=== PATIENT | male | born 1945 | race Caucasian/White ===

== ENCOUNTER 2019-05-28 17:02 | Inpatient (IN) | payer OTHER ==
[~2019-05-28] VITALS: Ht 177.8 cm; Wt 100.1 kg
[2019-05-28] MEDS ORDERED: SODIUM CHLORIDE 0.9% 1,000 ML IVB ONE (17:10)
[2019-05-28] MEDS ORDERED: ONDANSETRON HCL 4 MG/2 ML VIAL IV ONE (17:15)
[2019-05-28] MEDS ORDERED: KETOROLAC TROMETH 30 MG/ML 1ML VIAL IV ONE (17:15)
[2019-05-28] MEDS ORDERED: MORPHINE SULFATE 4 MG/ML SYR/VIAL IV ONE (17:15)
[2019-05-28 18:01] LABS: Basophils # (auto) 0 uL; Basophils % (auto) 0.2 % (0.0-2.0); Eosinophils # (auto) 0 uL; Eosinophils % (auto) 0.1 % (0.0-7.0); Hemoglobin 15.8 g/dL (13.5-17.5); Lymphocytes # (auto) 0.7 uL; Mean Corpuscular Hemoglobin 29.7 pg (28.0-32.0); Mean Corpuscular Hgb Conc. 33.5 g/dL (32.0-36.0); Mean Corpuscular Volume 88.7 fL (80.0-100.0); Monocytes # (auto) 0.8 uL; Monocytes % (auto) 4.5 % (0.0-12.0); Neutrophils # (auto) 15.5 uL; Neutrophils % (auto) 91.2 % (37.0-80.0); Platelet Count (auto) 207 10^3/uL (140-450); Red Cell Distribution Width 14.5 % (11.8-14.3)
[2019-05-28 18:17] LABS: Albumin 2.9 g/dL (3.4-5.0); Calcium 8.7 mg/dL (8.5-10.1); Potassium 4.2 mmol/L (3.5-5.1)
[2019-05-28 18:22] LABS: BUN/Creatinine Ratio 16.5; Bilirubin, Total 0.8 mg/dL (0.2-1.0); Total Protein 7.2 g/dL (6.4-8.2)
[2019-05-28] MEDS ORDERED: CITA-77 PO (18:52)
[2019-05-28] MEDS ORDERED: ALLO300T2 PO (18:52)
[2019-05-28] MEDS ORDERED: FENO1TAB41 PO (18:52)
[2019-05-28] MEDS ORDERED: GABA100C9 PO (18:52)
[2019-05-28] MEDS ORDERED: SIMV-8 PO (18:52)
[2019-05-28] MEDS ORDERED: MULT1TAB65 PO (18:52)
[2019-05-28] MEDS ORDERED: PANT1INJ3 PO (18:52)
[2019-05-28] MEDS ORDERED: OMEG100078 PO (18:52)
[2019-05-28] MEDS ORDERED: DOXA4TAB5 PO (18:52)
[2019-05-28] MEDS ORDERED: cefTRIAXone 1GM/50ML D5W 50 ML IV ONE (19:15)
[2019-05-28 19:34] LABS: Urine Bacteria NONE SEEN /hpf (None Seen); Urine Blood 2+ /uL (Negative); Urine Specific Gravity 1.014 (1.001-1.035); Urine WBC 18 /hpf (0 - 3)
[2019-05-28] MEDS ORDERED: NITROGLYCERIN 0.4 MG SL TAB SL PRN (21:15)
[2019-05-28] MEDS ORDERED: MORPHINE SULF INJ 2 MG/ML SYRINGE 1ML IV PRN ×2 (21:15)
[2019-05-28] MEDS ORDERED: ONDANSETRON HCL 4 MG/2 ML VIAL IV PRN (21:15)
[2019-05-28] MEDS ORDERED: ACETAMINOPHEN 500 MG TAB PO PRN (21:15)
[2019-05-28] MEDS ORDERED: DEXTROSE (50%) 50ML SYRG IV PRN (21:30)
[2019-05-28] MEDS: SODIUM CHLORIDE 0.9% 1,000 ML IV SCH (21:37)
[2019-05-28 21:42] LABS: Basophils # (auto) 0.1 uL; Basophils % (auto) 0.4 % (0.0-2.0); Eosinophils # (auto) 0 uL; Eosinophils % (auto) 0.1 % (0.0-7.0); Hematocrit 41.2 % (41.0-53.0); Hemoglobin 14.1 g/dL (13.5-17.5); Lymphocytes # (auto) 1.1 uL; Lymphocytes % (auto) 7.4 % (10.0-50.0); Mean Corpuscular Hgb Conc. 34.2 g/dL (32.0-36.0); Mean Corpuscular Volume 87.6 fL (80.0-100.0); Monocytes # (auto) 0.9 uL; Monocytes % (auto) 6.3 % (0.0-12.0); Neutrophils # (auto) 12.4 uL; Neutrophils % (auto) 85.8 % (37.0-80.0); Platelet Count (auto) 200 10^3/uL (140-450); Red Blood Cells 4.71 10^6/uL (4.5-5.90); Red Cell Distribution Width 14.4 % (11.8-14.3); White Blood Cell 14.4 10^3/uL (4.4-10.8)
[2019-05-28] MEDS: ACCU-CHEK COMFORT CURVE STRIP VI SCH (22:00)
[2019-05-28 22:04] LABS: BUN/Creatinine Ratio 17.1; Calcium 8.2 mg/dL (8.5-10.1); Potassium 4.3 mmol/L (3.5-5.1)
--- NOTE | 2019-05-28 22:15 | NUR ---
RECEIVED PATIENT FROM ED VIA STRETCHER, AWAKE, ALERT, ORIENTED X4, ABLE TO AMBULATE. NO S/S OF RESPIRATORY DISTRESS, DENIES ANY PAIN. SKIN IS INTACT. ORIENTED ON PLAN OF CARE. BED IS LOCKED AND IN LOWEST POSITION, SIDE RAILS UP X2, CALL LIGHT WITHIN REACH. WILL CONTINUE TO MONITOR
[2019-05-28 22:30] VITALS: BP 119/71
[2019-05-28] MEDS: METOPROLOL TARTRATE 25 MG TAB PO SCH (22:45)
[2019-05-28] MEDS: TERAZOSIN HCL 1 MG CAP PO SCH (22:45)
[2019-05-28] MEDS: InsuLIN REG 1unit/0.01ml Soln (100units/ml) SC SCH (22:46)
[2019-05-28] MEDS ORDERED: MULTCAP45 PO (23:45)
[2019-05-28] MEDS ORDERED: AMLO5TAB15 PO (23:45)
[2019-05-28] MEDS ORDERED: TERA2CAP45 PO (23:45)
[2019-05-28] MEDS ORDERED: LISI-646 PO (23:45)
[2019-05-28] MEDS ORDERED: METO25TA5 PO (23:45)
[2019-05-28] MEDS ORDERED: ASPI-404 PO (23:45)
[2019-05-29 05:00] VITALS: BP 133/57
[2019-05-29] MEDS: InsuLIN REG 1unit/0.01ml Soln (100units/ml) SC SCH ×4 (06:26→21:56)
[2019-05-29] MEDS: ACCU-CHEK COMFORT CURVE STRIP VI SCH ×4 (06:27→21:56)
--- NOTE | 2019-05-29 07:16 | NUR ---
CARE ENDORSED TO AM SHIFT RN
[2019-05-29] MEDS ORDERED: INFLUENZA QUAD 2019-2020 0.5ml SYRG IM ONE (09:00)
[2019-05-29] MEDS: cefTRIAXone 1GM/50ML D5W 50 ML IV SCH (09:06)
[2019-05-29] MEDS: amLODIPine BESYLATE 5 MG TAB PO SCH (09:10)
[2019-05-29] MEDS: METOPROLOL TARTRATE 25 MG TAB PO SCH ×2 (09:10→21:56)
[2019-05-29] MEDS: PANTOPRAZOLE 40 MG TAB PO SCH (09:11)
[2019-05-29 09:17] VITALS: BP 133/66
[2019-05-29] MEDS ORDERED: LISINOPRIL 20 MG TAB PO SCH (10:00)
[2019-05-29 13:04] VITALS: BP 128/53
[2019-05-29] MEDS: HYDROcodone-ACET 5/325MG TAB PO PRN ×2 (14:56→23:31)
[2019-05-29] MEDS: SODIUM CHLORIDE 0.9% 1,000 ML IV SCH ×2 (14:57→23:55)
[2019-05-29 15:06] LABS: INR 1.06 (0.9-1.15); Partial Thromboplastin Time 27.5 sec (23.64-32.05)
[2019-05-29 17:07] VITALS: BP 140/81
--- NOTE | 2019-05-29 19:15 | NUR ---
RECEIVED PATIENT, AWAKE, ALERT, ORIENTED X4. NO S/S OF RESPIRATORY DISTRESS, DENIES ANY PAIN. ORIENTED ON PLAN OF CARE. BED IS LOCKED AND IN LOWEST POSITION, SIDE RAILS UP X2, CALL LIGHT WITHIN REACH. WILL CONTINUE TO MONITOR
[2019-05-29] MEDS: TERAZOSIN HCL 1 MG CAP PO SCH (21:56)
[2019-05-29 22:00] VITALS: BP 144/69
[2019-05-30] MEDS: SODIUM CHLORIDE 0.9% 1,000 ML IV SCH ×3 (03:39→20:10)
[2019-05-30 05:00] VITALS: BP 136/64
[2019-05-30] MEDS: ACCU-CHEK COMFORT CURVE STRIP VI SCH ×4 (06:33→21:34)
[2019-05-30] MEDS: InsuLIN REG 1unit/0.01ml Soln (100units/ml) SC SCH ×4 (06:33→21:37)
[2019-05-30 07:01] LABS: Calcium 8.1 mg/dL (8.5-10.1); Potassium 4.5 mmol/L (3.5-5.1)
[2019-05-30 07:03] LABS: BUN/Creatinine Ratio 16.3
[2019-05-30 07:12] LABS: INR 1.04 (0.9-1.15); Partial Thromboplastin Time 29.9 sec (23.64-32.05)
--- NOTE | 2019-05-30 07:16 | NUR ---
CARE ENDORSED TO AM SHIFT RN
[2019-05-30] MEDS: cefTRIAXone 1GM/50ML D5W 50 ML IV SCH (08:35)
[2019-05-30 09:00] VITALS: BP 132/71
--- NOTE | 2019-05-30 09:23 | NUR ---
D/C Planning Per consult for Home health for nephrostomy tube care and for [place] to arrange appointment for Pt. Contacted [facility] Ph:) Fax:) faxed medical records. Per [facility] from [facility] Pt has been accepted and service to start within 48hrs upon d/c day. Informed JUAN MANUEL Gomez for authorization. Information for acceptance agency was given to Pt at bed side. Pt verbalize understanding. Addendum: 05/30/19 at 0927 by DENG ALICEA Amended: Links added.
[2019-05-30] MEDS ORDERED: LIDOCAINE 2%HCL (LOCAL ANESTH.) INJ 20ML MDV ONE (12:40)
[2019-05-30] MEDS ORDERED: IODIXANOL 320MG/ML 100ML BTL IV ONE (12:40)
[2019-05-30] MEDS ORDERED: MIDAZOLAM HCL 1MG/1ML-2 ML VIAL ONE (12:40)
[2019-05-30] MEDS ORDERED: fentaNYL CITRATE 100 MCG/2 ML VL ONE (12:40)
--- NOTE | 2019-05-30 14:29 | NUR ---
PT OUT IN PROCEDURE @ 1300 UNABLE TO OBTAIN VITALS
[2019-05-30 15:45] VITALS: BP 166/78
--- NOTE | 2019-05-30 15:50 | NUR ---
back to room, status post left nephrostomy tube placement.
[2019-05-30] MEDS: amLODIPine BESYLATE 5 MG TAB PO SCH (16:02)
[2019-05-30] MEDS: METOPROLOL TARTRATE 25 MG TAB PO SCH ×2 (16:02→21:33)
[2019-05-30] MEDS: PANTOPRAZOLE 40 MG TAB PO SCH (16:03)
[2019-05-30 17:00] VITALS: BP 113/65
[2019-05-30] MEDS ORDERED: VANCOMYCIN PER PHARMACY 0 MG IV SCH (18:15)
[2019-05-30] MEDS ORDERED: IBUPROFEN 800 MG TAB PO ONE (18:15)
--- NOTE | 2019-05-30 18:45 | NUR ---
1555 temp 102.8 cooling measures provided, temp went down to 100.3 went back up around 1730 to 101.3 paged. Orders received. patient then noted removing gown and change to his outside clothes complaining its warm. temp 99.1 noted. ordered Ibuprofen not needed at this time. will continue to monitor. nephrostomy tube was empty by aquatics coordinator with [address] Jackson also ordered to do UA,BC x 2 if continue to have fever overnight.
[2019-05-30] MEDS ORDERED: VANCOMYCIN 1GM/250ML 250 ML IV ONE (19:15)
--- NOTE | 2019-05-30 19:35 | NUR ---
Opening Shift Note Assumed care of patient, awake and alert oriented x4. No S/S of distress/SOB or pain noted. Instructed on POC and to call for assist PRN. Bed is in lowest locked position with bed rails up x2 and call light is within reach of the patient. Addendum: 05/31/19 at 0304 by Jane Castellano RN RN left nephrostomy tube bag draining red fluid into the bag
[2019-05-30] MEDS: TERAZOSIN HCL 1 MG CAP PO SCH (21:33)
[2019-05-30 22:00] VITALS: BP 101/60
--- NOTE | 2019-05-31 01:00 | NUR ---
Nephrostomy bag: Patient emptied nephrostomy tube bag by himself without showing this RN stating "It was full." Instructed patient to notify this RN to be measured and document color and output from nephrostomy bag. Patient verbalized understanding and is to call this RN
[2019-05-31 04:51] VITALS: BP 125/70
[2019-05-31 05:21] LABS: Urine Bacteria FEW /hpf (None Seen); Urine Blood 3+ /uL (Negative); Urine Hyaline Cast FEW /lpf (0 - 2); Urine Specific Gravity 1.016 (1.001-1.035); Urine WBC 51 /hpf (0 - 3)
[2019-05-31] MEDS: ACCU-CHEK COMFORT CURVE STRIP VI SCH ×3 (06:16→17:04)
[2019-05-31] MEDS: SODIUM CHLORIDE 0.9% 1,000 ML IV SCH ×2 (06:16→14:47)
[2019-05-31] MEDS: InsuLIN REG 1unit/0.01ml Soln (100units/ml) SC SCH ×3 (06:19→17:05)
[2019-05-31 06:38] LABS: Basophils # (auto) 0.1 uL; Basophils % (auto) 0.4 % (0.0-2.0); Eosinophils # (auto) 0 uL; Eosinophils % (auto) 0.4 % (0.0-7.0); Hematocrit 38.7 % (41.0-53.0); Hemoglobin 12.8 g/dL (13.5-17.5); Lymphocytes # (auto) 0.5 uL; Lymphocytes % (auto) 4.1 % (10.0-50.0); Mean Corpuscular Hemoglobin 29.8 pg (28.0-32.0); Mean Corpuscular Hgb Conc. 33.1 g/dL (32.0-36.0); Monocytes # (auto) 0.7 uL; Monocytes % (auto) 5.8 % (0.0-12.0); Neutrophils # (auto) 10.3 uL; Neutrophils % (auto) 89.3 % (37.0-80.0); Nucleated Red Blood Cells % 0.1 %; Platelet Count (auto) 147 10^3/uL (140-450); Red Cell Distribution Width 14.3 % (11.8-14.3); White Blood Cell 11.6 10^3/uL (4.4-10.8)
[2019-05-31 06:58] LABS: BUN/Creatinine Ratio 17.9; Calcium 8.2 mg/dL (8.5-10.1); Potassium 4.5 mmol/L (3.5-5.1)
--- NOTE | 2019-05-31 07:07 | NUR ---
300ml of foggy brown drainage from nephrostomy tube. Addendum: 05/31/19 at 0709 by Jane Castellano RN RN red brown drainage
--- NOTE | 2019-05-31 08:00 | NUR ---
Nephrostomy tube with pinkish to bloody urine noted. Patient has coughing noted.
[2019-05-31] MEDS: cefTRIAXone 1GM/50ML D5W 50 ML IV SCH (08:13)
[2019-05-31] MEDS: ACETAMINOPHEN 325 MG TAB PO PRN ×2 (08:13→17:06)
--- NOTE | 2019-05-31 08:13 | NUR ---
Temp = 102.4 F. Tylenol PO given for elevated temperature.
[2019-05-31 09:09] VITALS: BP 126/64
--- NOTE | 2019-05-31 09:30 | NUR ---
Temp = 98.1 F.
[2019-05-31] MEDS: PANTOPRAZOLE 40 MG TAB PO SCH (10:35)
[2019-05-31] MEDS: amLODIPine BESYLATE 5 MG TAB PO SCH (10:36)
[2019-05-31] MEDS: METOPROLOL TARTRATE 25 MG TAB PO SCH (10:36)
[2019-05-31] MEDS ORDERED: VANCOMYCIN 1GM/250ML 250 ML IV ONE (11:00)
--- NOTE | 2019-05-31 11:36 | NUR ---
Dr. Jackson came over. made aware patient has elevated temperature this morning. Tylenol was given, it went down to 98.[address] Jackson put in new orders.
--- NOTE | 2019-05-31 12:56 | NUR ---
CALLED FOR APPT PER DC ORDER FOR PATIENT TO SEE DR LAURA FERRARA. OFFICE IS REFUSING TO MAKE APPT EVEN THOUGH DR FERRARA REQUESTED IT. EXPLAINED PT HAD A DRAIN PLACED AND NEEDS TO BE REMOVED THEY STATED THAT ITS NOT CONSIDERED POST OP. MADE APPT WITH DR DRAKE PTS PCP INSTEAD.
[2019-05-31 13:00] VITALS: BP 118/63
[2019-05-31 13:09] VITALS: BP 126/64
[2019-05-31 13:57] LABS: Urine Bacteria FEW /hpf (None Seen); Urine Blood 3+ /uL (Negative); Urine Mucus FEW (None Seen); Urine Specific Gravity 1.016 (1.001-1.035); Urine WBC 58 /hpf (0 - 3)
--- NOTE | 2019-05-31 15:32 | NUR ---
Temp = 98.4 F. Patient to call one his son or his daughter who will pick him up when he gets discharge today. Patient said he has no guevara at home.
--- NOTE | 2019-05-31 16:30 | NUR ---
Temp = 100.0 F.
--- NOTE | 2019-05-31 16:57 | NUR ---
Temp = 100.9 F. Will give Tylenol PO.
[2019-05-31 17:41] VITALS: BP 123/54
--- NOTE | 2019-05-31 17:46 | NUR ---
Temp = 100 F. Patient is going to be discharged home today.
--- NOTE | 2019-05-31 18:10 | NUR ---
Nephrostomy tube intact and patent, draining clear, light pinkish urine.
== END 2019-05-31 18:20 | disposition home or self-care (01) | DRG 690 ==
LOC: ER 17:02 → EDBD 17:02 → OVERFLOW 17:03 → CENTRAL 22:37
PROVIDERS: ADMIT Nurse Practitioner Acute Care; ATTEND Hospitalist
PROC: 0T9130Z Drainage of Left Kidney with Drainage Device, Percutaneous Approach (ICD-10-PCS; principal; 2019-05-30)
PROC: BT1F1ZZ Fluoroscopy of Left Kidney, Ureter and Bladder using Low Osmolar Contrast (ICD-10-PCS; 2019-05-30)
DX: N13.6 Pyonephrosis (principal); E44.1 Mild protein-calorie malnutrition; R65.10 Systemic inflammatory response syndrome (SIRS) of non-infectious origin without acute organ dysfunction; N17.9 Acute kidney failure, unspecified; E11.9 Type 2 diabetes mellitus without complications; E78.5 Hyperlipidemia, unspecified; I10 Essential (primary) hypertension; K80.20 Calculus of gallbladder without cholecystitis without obstruction; Z96.652 Presence of left artificial knee joint; E66.01 Morbid (severe) obesity due to excess calories; D72.829 Elevated white blood cell count, unspecified; K57.30 Diverticulosis of large intestine without perforation or abscess without bleeding; Z87.442 Personal history of urinary calculi; Z80.9 Family history of malignant neoplasm, unspecified; Z79.84 Long term (current) use of oral hypoglycemic drugs; Z82.49 Family history of ischemic heart disease and other diseases of the circulatory system; Z79.899 Other long term (current) drug therapy; Z68.31 Body mass index [BMI] 31.0-31.9, adult
CPT/HCPCS: 36415; 50430; 74176; 76775; 76942; 80048; 80053; 80202; 81001; 82962; 83036; 83690; 85025; 85610; 85730; 87086; 87088; 87186; 93005; 94761; 99152; C1729; G0378; J0696; J1815; J1885; J2250; J2405; Q9967

== ENCOUNTER 2022-04-14 09:51 | Inpatient (IN) | payer OTHER ==
[~2022-04-14] VITALS: Ht 177.8 cm; Wt 105.5 kg
[~2022-04-14 09:51] MED LIST: AMLO-489 PO; ASPI-543 PO; LISI20TA28 PO; METO25TA5 PO; MULTCAP45 PO; TERA2CAP45 PO
[2022-04-14 10:52] LABS: Basophils # (auto) 0.1 10 ^3/uL (0-0.2); Basophils % (auto) 0.4 % (0.0-2.0); Eosinophils # (auto) 0.1 10 ^3/uL (0-0.8); Eosinophils % (auto) 0.5 % (0.0-7.0); Hematocrit 44.8 % (41.0-53.0); Hemoglobin 14.7 g/dL (13.5-17.5); Lymphocytes # (auto) 1.1 10 ^3/uL (0.4-5.4); Lymphocytes % (auto) 7.6 % (10.0-50.0); Mean Corpuscular Hemoglobin 28.6 pg (28.0-32.0); Mean Corpuscular Hgb Conc. 32.9 g/dL (32.0-36.0); Monocytes # (auto) 0.7 10 ^3/uL (0-1.3); Monocytes % (auto) 5.2 % (0.0-12.0); Neutrophils # (auto) 12.3 10 ^3/uL (1.6-8.6); Neutrophils % (auto) 86.3 % (37.0-80.0); Red Blood Cells 5.15 10^6/uL (4.5-5.90); Red Cell Distribution Width 13.7 % (11.8-14.3); White Blood Cell 14.3 10^3/uL (4.4-10.8)
[2022-04-14 11:10] LABS: Albumin 3.4 g/dL (3.4-5.0); Calcium 9.5 mg/dL (8.5-10.1); Potassium 4.4 mmol/L (3.5-5.1)
[2022-04-14 11:15] LABS: Bilirubin, Total 0.9 mg/dL (0.2-1.0); Total Protein 7.1 g/dL (6.4-8.2)
[2022-04-14 11:52] LABS: Urine Bacteria FEW /hpf (None Seen); Urine Blood 3+ /uL (Negative); Urine Mucus FEW (None Seen); Urine Specific Gravity 1.024 (1.001-1.035); Urine WBC 180 /hpf (0 - 3)
[2022-04-14] MEDS ORDERED: KETOROLAC TROMETH 30 MG/ML 1ML VIAL IV ONE (13:45)
[2022-04-14] MEDS ORDERED: TAMSULOSIN HYDROCHLORIDE 0.4 MG CAP PO ONE (13:45)
[2022-04-14] MEDS ORDERED: SODIUM CHLORIDE 0.9% 1,000 ML IV ONE (13:45)
[2022-04-14] MEDS ORDERED: ONDANSETRON HCL 4 MG/2 ML VIAL IV ONE (14:15)
[2022-04-14] MEDS ORDERED: DEXTROSE (50%) 50ML SYRG IV PRN (14:30)
[2022-04-14] MEDS ORDERED: MORPHINE SULFATE INJ 2 MG/ml SYRG IV PRN (14:30)
[2022-04-14] MEDS ORDERED: ACETAMINOPHEN 325 MG TAB PO PRN (14:30)
[2022-04-14] MEDS ORDERED: DOCUSATE SOD 100 MG CAP PO PRN (14:30)
[2022-04-14] MEDS ORDERED: HYDROcodone-ACET 5/325MG TAB PO PRN (14:30)
[2022-04-14] MEDS ORDERED: ONDANSETRON HCL 4 MG/2 ML VIAL IV PRN (14:30)
[2022-04-14] MEDS: SODIUM CHLORIDE 0.9% 1,000 ML IV SCH ×2 (14:55→23:24)
[2022-04-14] MEDS ORDERED: hydrALAZINE HCL 20 MG/ML VL IV PRN (15:45)
[2022-04-14] MEDS ORDERED: MANNITOL FTV 25% 12.5 GM/50 ML 50 ML IV ONE (16:15)
[2022-04-14] MEDS: ACCU-CHEK COMFORT CURVE STRIP VI SCH ×2 (17:00→22:00)
[2022-04-14] MEDS: InsuLIN REG 1unit/0.01ml Soln (100units/ml) SC SCH ×2 (17:00→22:04)
[2022-04-15 05:00] VITALS: BP 129/67
[2022-04-15 05:31] LABS: Basophils # (auto) 0.1 10 ^3/uL (0-0.2); Basophils % (auto) 0.4 % (0.0-2.0); Eosinophils # (auto) 0 10 ^3/uL (0-0.8); Eosinophils % (auto) 0.2 % (0.0-7.0); Hematocrit 41.1 % (41.0-53.0); Hemoglobin 13.7 g/dL (13.5-17.5); Lymphocytes # (auto) 0.8 10 ^3/uL (0.4-5.4); Lymphocytes % (auto) 5.6 % (10.0-50.0); Mean Corpuscular Hemoglobin 28.8 pg (28.0-32.0); Mean Corpuscular Hgb Conc. 33.2 g/dL (32.0-36.0); Mean Corpuscular Volume 86.9 fL (80.0-100.0); Monocytes # (auto) 0.9 10 ^3/uL (0-1.3); Monocytes % (auto) 6.6 % (0.0-12.0); Neutrophils % (auto) 87.2 % (37.0-80.0); Red Blood Cells 4.73 10^6/uL (4.5-5.90); Red Cell Distribution Width 13.7 % (11.8-14.3); White Blood Cell 13.8 10^3/uL (4.4-10.8)
[2022-04-15 05:42] LABS: Potassium 4.2 mmol/L (3.5-5.1)
[2022-04-15 05:51] LABS: Albumin 2.8 g/dL (3.4-5.0); BUN/Creatinine Ratio 16.9; Calcium 8.3 mg/dL (8.5-10.1)
[2022-04-15] MEDS: ACCU-CHEK COMFORT CURVE STRIP VI SCH ×4 (05:52→21:25)
[2022-04-15 05:53] LABS: Bilirubin, Total 1.1 mg/dL (0.2-1.0); Total Protein 6.2 g/dL (6.4-8.2)
[2022-04-15] MEDS: InsuLIN REG 1unit/0.01ml Soln (100units/ml) SC SCH ×4 (06:01→21:14)
[2022-04-15] MEDS: SODIUM CHLORIDE 0.9% 1,000 ML IV SCH ×3 (07:26→23:49)
[2022-04-15 08:58] VITALS: BP 128/86
[2022-04-15 09:48] LABS: INR 1.14 (0.9-1.15); Partial Thromboplastin Time 28.2 sec (24.6-33.4)
[2022-04-15] MEDS: ASPirin 81 mg TAB PO SCH (10:35)
[2022-04-15] MEDS: ENOXAPARIN SOD 40 MG/0.4 ML SYRINGE SC SCH (10:36)
[2022-04-15] MEDS: LISINOPRIL 20 MG TAB PO SCH (10:37)
[2022-04-15] MEDS: TERAZOSIN HCL 1 MG CAP PO SCH (10:37)
[2022-04-15] MEDS: amLODIPine BESYLATE 5 MG TAB PO SCH (10:38)
[2022-04-15 12:46] VITALS: BP 129/68
[2022-04-15] MEDS ORDERED: GADOTERATE MEG 10 MMOL/20ml INJ (0.5MMOL/ml) IV ONE (14:07)
[2022-04-15 17:00] VITALS: BP 133/61
[2022-04-15 22:06] VITALS: BP 123/70
[2022-04-16] MEDS ORDERED: VANCOMYCIN PER PHARMACY 0 MG IV SCH (02:15)
[2022-04-16] MEDS ORDERED: VANCOMYCIN 1GM/250ML 250 ML IV ONE ×2 (02:30→08:30)
[2022-04-16 05:30] VITALS: BP 138/71
[2022-04-16] MEDS: InsuLIN REG 1unit/0.01ml Soln (100units/ml) SC SCH ×4 (06:24→21:51)
[2022-04-16] MEDS: ACCU-CHEK COMFORT CURVE STRIP VI SCH ×4 (06:24→21:45)
[2022-04-16 09:05] VITALS: BP 133/70
[2022-04-16 09:47] LABS: Albumin 2.6 g/dL (3.4-5.0); Calcium 8.2 mg/dL (8.5-10.1); Potassium 3.9 mmol/L (3.5-5.1)
[2022-04-16 09:50] LABS: BUN/Creatinine Ratio 15.5; Phosphorus 2.3 mg/dL (2.5-4.90)
[2022-04-16] MEDS: ENOXAPARIN SOD 40 MG/0.4 ML SYRINGE SC SCH ×2 (10:00→10:20)
[2022-04-16] MEDS: ASPirin 81 mg TAB PO SCH (10:18)
[2022-04-16] MEDS: TERAZOSIN HCL 1 MG CAP PO SCH (10:19)
[2022-04-16] MEDS: amLODIPine BESYLATE 5 MG TAB PO SCH (10:19)
[2022-04-16] MEDS: LISINOPRIL 20 MG TAB PO SCH (10:20)
[2022-04-16] MEDS: SODIUM CHLORIDE 0.9% 1,000 ML IV SCH ×2 (10:25→17:50)
[2022-04-16 13:00] VITALS: BP 151/77
[2022-04-16 16:55] VITALS: BP 135/60
[2022-04-16] MEDS: CEPHALEXIN 250 MG CAP PO SCH (17:48)
[2022-04-16 22:00] VITALS: BP 140/84
[2022-04-16] MEDS ORDERED: VANCOMYCIN 1GM/250ML 250 ML IV SCH (22:00)
[2022-04-17] MEDS: CEPHALEXIN 250 MG CAP PO SCH ×4 (00:11→17:24)
[2022-04-17] MEDS: SODIUM CHLORIDE 0.9% 1,000 ML IV SCH ×3 (00:11→17:39)
[2022-04-17 05:00] VITALS: BP 128/77
[2022-04-17 05:27] LABS: Basophils # (auto) 0.1 10 ^3/uL (0-0.2); Basophils % (auto) 0.7 % (0.0-2.0); Eosinophils # (auto) 0.2 10 ^3/uL (0-0.8); Eosinophils % (auto) 2.6 % (0.0-7.0); Hematocrit 38.5 % (41.0-53.0); Hemoglobin 12.9 g/dL (13.5-17.5); Lymphocytes # (auto) 1.1 10 ^3/uL (0.4-5.4); Mean Corpuscular Hemoglobin 28.7 pg (28.0-32.0); Mean Corpuscular Hgb Conc. 33.5 g/dL (32.0-36.0); Mean Corpuscular Volume 85.7 fL (80.0-100.0); Monocytes # (auto) 0.6 10 ^3/uL (0-1.3); Monocytes % (auto) 7.8 % (0.0-12.0); Neutrophils # (auto) 5.8 10 ^3/uL (1.6-8.6); Neutrophils % (auto) 74.9 % (37.0-80.0); Nucleated Red Blood Cells % 0.1 %; Red Cell Distribution Width 13.6 % (11.8-14.3); White Blood Cell 7.8 10^3/uL (4.4-10.8)
[2022-04-17 05:47] LABS: Albumin 2.5 g/dL (3.4-5.0); BUN/Creatinine Ratio 15.1; Calcium 8.1 mg/dL (8.5-10.1); Phosphorus 2.5 mg/dL (2.5-4.90); Potassium 3.7 mmol/L (3.5-5.1)
[2022-04-17] MEDS: ACCU-CHEK COMFORT CURVE STRIP VI SCH ×4 (06:46→21:58)
[2022-04-17] MEDS: InsuLIN REG 1unit/0.01ml Soln (100units/ml) SC SCH ×4 (06:48→22:01)
[2022-04-17 08:00] VITALS: BP 137/69
[2022-04-17 09:00] VITALS: BP 137/69
[2022-04-17] MEDS: ENOXAPARIN SOD 40 MG/0.4 ML SYRINGE SC SCH ×2 (10:00→12:59)
[2022-04-17] MEDS: amLODIPine BESYLATE 5 MG TAB PO SCH (12:58)
[2022-04-17] MEDS: TERAZOSIN HCL 1 MG CAP PO SCH (12:58)
[2022-04-17] MEDS: LISINOPRIL 20 MG TAB PO SCH (12:59)
[2022-04-17] MEDS: ASPirin 81 mg TAB PO SCH (12:59)
[2022-04-17 13:00] VITALS: BP 146/78
[2022-04-17 16:59] VITALS: BP 139/84
[2022-04-17 22:00] VITALS: BP 139/62
[2022-04-18] MEDS: CEPHALEXIN 250 MG CAP PO SCH ×5 (00:23→23:36)
[2022-04-18] MEDS: SODIUM CHLORIDE 0.9% 1,000 ML IV SCH ×3 (02:56→18:44)
[2022-04-18 05:00] VITALS: BP 150/75
[2022-04-18] MEDS: ACCU-CHEK COMFORT CURVE STRIP VI SCH ×4 (06:15→21:42)
[2022-04-18] MEDS: InsuLIN REG 1unit/0.01ml Soln (100units/ml) SC SCH ×4 (06:17→21:46)
[2022-04-18 09:00] VITALS: BP 130/75
[2022-04-18] MEDS: ENOXAPARIN SOD 40 MG/0.4 ML SYRINGE SC SCH (10:00)
[2022-04-18] MEDS: TERAZOSIN HCL 1 MG CAP PO SCH (10:00)
[2022-04-18] MEDS: amLODIPine BESYLATE 5 MG TAB PO SCH (10:03)
[2022-04-18] MEDS: ASPirin 81 mg TAB PO SCH (10:03)
[2022-04-18] MEDS: LISINOPRIL 20 MG TAB PO SCH (10:04)
[2022-04-18 13:00] VITALS: BP 153/75
[2022-04-18 13:28] LABS: Basophils # (auto) 0.1 10 ^3/uL (0-0.2); Basophils % (auto) 1.1 % (0.0-2.0); Eosinophils # (auto) 0.2 10 ^3/uL (0-0.8); Eosinophils % (auto) 2.5 % (0.0-7.0); Hemoglobin 13.9 g/dL (13.5-17.5); Lymphocytes # (auto) 1.7 10 ^3/uL (0.4-5.4); Lymphocytes % (auto) 20.2 % (10.0-50.0); Mean Corpuscular Hemoglobin 28.3 pg (28.0-32.0); Mean Corpuscular Hgb Conc. 33.2 g/dL (32.0-36.0); Mean Corpuscular Volume 85.3 fL (80.0-100.0); Monocytes # (auto) 0.6 10 ^3/uL (0-1.3); Monocytes % (auto) 7.5 % (0.0-12.0); Neutrophils # (auto) 5.7 10 ^3/uL (1.6-8.6); Neutrophils % (auto) 68.7 % (37.0-80.0); Nucleated Red Blood Cells % 0.1 %; Red Blood Cells 4.92 10^6/uL (4.5-5.90); Red Cell Distribution Width 13.7 % (11.8-14.3); White Blood Cell 8.2 10^3/uL (4.4-10.8)
[2022-04-18 13:47] LABS: BUN/Creatinine Ratio 10.1; Calcium 8.8 mg/dL (8.5-10.1); Potassium 3.6 mmol/L (3.5-5.1)
[2022-04-18 17:00] VITALS: BP 147/77
[2022-04-18 22:00] VITALS: BP 152/83
[2022-04-19] MEDS: SODIUM CHLORIDE 0.9% 1,000 ML IV SCH (02:50)
[2022-04-19 04:38] LABS: Basophils # (auto) 0.1 10 ^3/uL (0-0.2); Basophils % (auto) 0.8 % (0.0-2.0); Eosinophils # (auto) 0.2 10 ^3/uL (0-0.8); Eosinophils % (auto) 2.6 % (0.0-7.0); Hematocrit 37.5 % (41.0-53.0); Hemoglobin 12.7 g/dL (13.5-17.5); Lymphocytes # (auto) 1.2 10 ^3/uL (0.4-5.4); Lymphocytes % (auto) 15.4 % (10.0-50.0); Mean Corpuscular Hemoglobin 28.5 pg (28.0-32.0); Mean Corpuscular Hgb Conc. 33.9 g/dL (32.0-36.0); Mean Corpuscular Volume 84.1 fL (80.0-100.0); Monocytes # (auto) 0.6 10 ^3/uL (0-1.3); Monocytes % (auto) 7.9 % (0.0-12.0); Neutrophils # (auto) 5.9 10 ^3/uL (1.6-8.6); Neutrophils % (auto) 73.3 % (37.0-80.0); Red Blood Cells 4.45 10^6/uL (4.5-5.90); Red Cell Distribution Width 13.7 % (11.8-14.3); White Blood Cell 8.1 10^3/uL (4.4-10.8)
[2022-04-19 04:53] LABS: Calcium 8.1 mg/dL (8.5-10.1); Potassium 3.4 mmol/L (3.5-5.1)
[2022-04-19 05:00] VITALS: BP 149/78
[2022-04-19] MEDS: CEPHALEXIN 250 MG CAP PO SCH ×4 (05:58→23:45)
[2022-04-19] MEDS: ACCU-CHEK COMFORT CURVE STRIP VI SCH ×4 (06:02→22:15)
[2022-04-19] MEDS: InsuLIN REG 1unit/0.01ml Soln (100units/ml) SC SCH ×4 (06:04→22:16)
[2022-04-19 09:00] VITALS: BP 140/80
[2022-04-19] MEDS: ENOXAPARIN SOD 40 MG/0.4 ML SYRINGE SC SCH (10:00)
[2022-04-19] MEDS: ASPirin 81 mg TAB PO SCH (10:35)
[2022-04-19] MEDS: amLODIPine BESYLATE 5 MG TAB PO SCH (10:35)
[2022-04-19] MEDS: LISINOPRIL 20 MG TAB PO SCH (10:36)
[2022-04-19 13:00] VITALS: BP 142/86
[2022-04-19 17:00] VITALS: BP 140/77
[2022-04-19 20:00] VITALS: BP 144/82
[2022-04-19 22:00] VITALS: BP 144/82
[2022-04-19] MEDS ORDERED: TERAZOSIN HCL 1 MG CAP PO SCH (22:00)
[2022-04-20] VITALS (18 sets, daily range): BP systolic 138–171; BP diastolic 76–90
[2022-04-20] MEDS: CEPHALEXIN 250 MG CAP PO SCH ×3 (06:00→18:00)
[2022-04-20] MEDS: ACCU-CHEK COMFORT CURVE STRIP VI SCH ×3 (06:20→18:05)
[2022-04-20] MEDS: InsuLIN REG 1unit/0.01ml Soln (100units/ml) SC SCH ×3 (06:23→18:28)
[2022-04-20 07:35] LABS: INR 1.06 (0.9-1.15); Partial Thromboplastin Time 26.9 sec (24.6-33.4)
[2022-04-20] MEDS ORDERED: LIDOCAINE 2% (LOCAL ANESTH.) PF 5ml SDV ONE (08:58)
[2022-04-20] MEDS: fentaNYL CITRATE 100 MCG/2 ML VL IV ONE ×2 (09:00→09:35)
[2022-04-20] MEDS ORDERED: MIDAZOLAM HCL 2MG/2ML 2ml VIAL (1mg/ml) IV ONE (09:00)
[2022-04-20] MEDS: ENOXAPARIN SOD 40 MG/0.4 ML SYRINGE SC SCH (10:00)
[2022-04-20] MEDS: ASPirin 81 mg TAB PO SCH (10:00)
[2022-04-20] MEDS: LISINOPRIL 20 MG TAB PO SCH (12:07)
[2022-04-20] MEDS: amLODIPine BESYLATE 5 MG TAB PO SCH (12:08)
[2022-04-20] MEDS ORDERED: AMOX-277 PO (17:38)
== END 2022-04-20 18:18 | disposition home or self-care (01) | DRG 436 ==
LOC: ER 09:51 → EDBD 09:51 → OVERFLOW 14:31 → CENTRAL 22:29
PROVIDERS: ADMIT Internal Medicine; ATTEND Internal Medicine
PROC: 0FB03ZX Excision of Liver, Percutaneous Approach, Diagnostic (ICD-10-PCS; principal; 2022-04-20)
DX: C25.9 Malignant neoplasm of pancreas, unspecified (principal); C79.01 Secondary malignant neoplasm of right kidney and renal pelvis; C79.9 Secondary malignant neoplasm of unspecified site; N17.9 Acute kidney failure, unspecified; N13.6 Pyonephrosis; R78.81 Bacteremia; E11.9 Type 2 diabetes mellitus without complications; I10 Essential (primary) hypertension; K76.9 Liver disease, unspecified; N40.0 Benign prostatic hyperplasia without lower urinary tract symptoms; E88.09 Other disorders of plasma-protein metabolism, not elsewhere classified; E66.01 Morbid (severe) obesity due to excess calories; Z20.822 Contact with and (suspected) exposure to COVID-19; B96.89 Other specified bacterial agents as the cause of diseases classified elsewhere; Z53.9 Procedure and treatment not carried out, unspecified reason; N28.89 Other specified disorders of kidney and ureter; Z87.442 Personal history of urinary calculi; Z68.33 Body mass index [BMI] 33.0-33.9, adult; Z79.899 Other long term (current) drug therapy
CPT/HCPCS: 10005; 36415; 71045; 74150; 74176; 74183; 77012; 80048; 80053; 80069; 80202; 81001; 82105; 82378; 82962; 85025; 85610; 85730; 86301; 87040; 87086; 93005; 96361; 96365; 96375; 96376; G0378; J1815; J1885; J2001; J2250; J2405